=== PATIENT | female | born 1955 | race Caucasian/White ===

== ENCOUNTER → 2023-07-30 | Day surgery (SDC) | payer MEDICARE, BC ==
[~2023-07-30] MED LIST: Ketamine 200 MG/20 ML MDV ONE; Ondansetron 4 MG/2 ML SDV ONE; Phenylephrine 1% 10 MG/ML SDV ONE; Propofol 200 MG/20 ML SDV ONE; fentaNYL 50 MCG/ML SDV ONE
[2023-07-30] MEDS: Lactated Ringers 1,000 ML IV SCH (11:15)
== END ==
LOC: CC.SDS 10:51
PROVIDERS: ATTEND Family Medicine
DX: Z12.11 Encounter for screening for malignant neoplasm of colon (principal); D12.2 Benign neoplasm of ascending colon; E78.5 Hyperlipidemia, unspecified; E66.9 Obesity, unspecified; Z88.8 Allergy status to other drugs, medicaments and biological substances; Z79.899 Other long term (current) drug therapy; Z68.28 Body mass index [BMI] 28.0-28.9, adult
CPT/HCPCS: 00811; 45380; J2371; J2405; J2704; J3010; J3490; J7120